=== PATIENT | female | born 1980 | race Caucasian/White ===

== ENCOUNTER 2020-10-14 11:40 | Outpatient (REF) | payer OTHER, SELFPAY | END 2020-10-14 11:41 | disposition home or self-care (01) | LOC: HO.LNP 11:40 | PROVIDERS: Visit Provider Hospitalist | DX: Z20.822 Contact with and (suspected) exposure to COVID-19 (principal); J40 Bronchitis, not specified as acute or chronic | CPT/HCPCS: U0003; U0005 ==

== ENCOUNTER 2024-07-27 13:51 | Outpatient (REF) | payer OTHER, SELFPAY ==
--- NOTE | ~2024-07-27 | MR_ITS ---
EXAMINATION: MR BRAIN WITHOUT CONTRAST CLINICAL INFORMATION: Blurred vision. Frequent urination.Paresthesia, lower extremities. COMPARISON: July 18, 2019. TECHNIQUE: MRI of the brain was obtained using routine sequences without contrast. FINDINGS: Patient's motion artifact. No hyperintense T2 FLAIR signal in the pericallosal interphase. No deep periventricular white matter Carrero fingers pattern No restricted diffusion. No acute intracranial hemorrhage, mass effect, midline shift, hydrocephalus or herniation. Menjivar-white matter differentiation is normal. Posterior cranial fossa contents demonstrated no signal abnormality or gross masses. Flow-void signal within the main cerebral vessels is normal. Sellar/suprasellar region demonstrated no signal abnormality or gross masses. Craniocervical junction demonstrates normal position of the cerebellar tonsils. Midline structures are normal.. MR/MR head/brain wo con IMPRESSION: No acute or structural brain abnormality. No signal abnormality to suggest demyelinating disease. Electronically signed by: Brandon Enriquez MD 07/27/2024 03:51 PM EDT
--- OUTSIDE RECORDS SUMMARY | 2024-07-27 14:01 | XMS_ITS | Clinical Summary ---
Author Organization [facility] [address] [place] [address] [place] [phone] Phone Care Team Providers Care School Program Director Name Role Phone Dawn Suazo MD Primary Care Provider [phone] Allergies Active Allergy Reactions Criticality Noted Date Comments Levonorgestrel-Ethinyl Estrad 2024 Medications albuterol HFA (ProAir HFA) 90 mcg/actuation inhaler INHALE 2 PUFFS BY MOUTH INTO LUNGS EVERY 4 HOURS NEEDED FOR COUGH OR WHEEZING 05/06/2017 Active loratadine (CLARITIN) 10 mg tablet Take 1 tablet (10 mg total) by mouth 1 (one) time each day. 05/17/2015 Active Interferon Beta-1a (REBIF) 22 mcg/0.5 mL injection Inject 0.5 mL (22 mcg total) under the skin 3 (three) times a week. Active zolpidem (AMBIEN) 10 mg tablet Take 1 tablet (10 mg total) by mouth at bedtime as needed. at bedtime Max Daily Amount: 10 mg 06/05/2024 Active Active Problems Problem Noted Date Diagnosed Date Severe obesity (BMI 35.0-39. 9) with comorbidity (CMS/HCC V24, CMS/HCC V28) 06/09/2024 Family history of breast cancer 02/15/2024 Overview (02/15/2024): Pt myRisk negative 07/21/16 Tyrer-Cuzick score - 31.9% = High Risk Juan Downs PA-C Asthma 04/11/2014 Multiple sclerosis ([facility] V24, [facility] V28) Overview (02/15/2024): Dr. Gurrola Rebramin injections 3 times weekly Encounters Date Type Department Care Team Description 06/21/2024 1:39 PM EDT - 06/21/2024 11:59 PM EDT Hospital Encounter Radiology Department - [address] [phone] Buttock pain Discharge Disposition: Home or Self Care 06/09/2024 9:00 AM EDT Office Visit Adult Medicine [address] [phone] Kasey Mcintyre PA Buttock pain (Primary Dx); Severe obesity (BMI 35.0-39.9) with comorbidity ([facility] V24, [facility] V28); Lipid screening; Need for vaccination against Streptococcus pneumoniae; Need for tetanus, diphtheria, and acellular pertussis (Tdap) vaccine; Need for hepatitis C screening test from Last 3 Months Immunizations Name Administration Dates Next Due Influenza Quadrivalent, 0.5m l, preservative free (Fluarix; FluLaval; Fluzone) ages 6mo and older (Afluria) 3yo and older 11/26/2021,01/21/2021,11/24/2017 Influenza Quadrivalent, with preservative (Fluzone; Afluria) 6mo and older 11/23/2018 Influenza trivalent, 0.5mL, preservative free (Fluarix; FluLaval; Fluzone) ages 6mo and older (Afluria) 3 years and older 12/07/2023,11/19/2016,11/20/2015,2014 Influenza trivalent, with preservative (Fluzone; Afluria) 6mo and older 11/20/2015 Influenza, Unspecified 11/24/2017,2016,12/12/2014,2013 Pneumococcal conjugate 13 va lent (Prevnar 13, PCV13) 2mo and older 12/12/2014 Pneumococcal conjugate 20 va lent (Prevnar 20, PCV 20) 2mo and older 06/09/2024 Tdap Tetanus diptheria acell ular pertussis (Boostrix; Adacel) 7yo and older 06/09/2024 Surgical History Surgery Date Site/Laterality Comments SECTION 2013 PROCEDURE: HISTORICAL CARPAL TUNNEL RELEASE Left PROCEDURE: HISTORICAL CARPAL TUNNEL REL BREAST REDUCTION 10/29/2016 PROCEDURE: ND BREAST REDUCTION Medical History Medical History Date Comments Multiple sclerosis (CMS/HCC V24, CMS/HCC V28) DX:Multiple sclerosis (HCC); COMMENT: dr gurrola Family History Medical History Relation Name Comments Breast cancer Aunt 1 maternal aunt Breast cancer Maternal Grandmother deceas ed at young age Breast cancer Mother unilateral Lung cancer Other 1 paternal gr aun t-smoker Relation Name Status Comments Aunt 1 Aunt 2 Maternal Grandmother Mother Other 1 Other 2 Social History Tobacco Use Types Packs/Day Years Used Date Smoking Tobacco: Former Cigarettes Q uit: 05/07/2023 Tobacco Cessation:Counseling Given: Not Answered Alcohol Use Standard Drinks/Week Comments Yes 0 (1 standard drink = 0.6 oz pur e alcohol) Housing Instability Answer Date Recorde d Are you worried that in the next 2 months you may not have stable housing? No 06/09/2024 Food Access & Nutrition Answer Date Rec orded Do you have access to a vari ety of food including fruits and vegetables? Yes 06/09/2024 Access to Healthcare Answer Date Record ed Within the last 3 months, ho w many times did you visit the emergency department for your medical care? 0 06/09/2024 Health Literacy Answer Date Recorded How often do you need to hav e someone help you when you read instructions, pamphlets, or other written material from your doctor or pharmacy? Never 06/09/2024 Caregiver: How often do you need to have someone help you when you read instructions, pamphlets, or other written material from your doctor or pharmacy? Not on file 06/09/2024 Financial Risk Answer Date Recorded How hard is it for you to pa y for the very basics like food, housing, medical care, and air conditioning / heating? Not very hard 06/09/2024 Transportation Answer Date Recorded Has the lack of transportati on kept you from meetings, work, or from getting things needed for daily living? No Has the lack of transportati on kept you from medical appointments or from getting medications? No 06/09/2024 Social Isolation Answer Date Recorded How often do you feel lonely or isolated from th ose around you? Never 06/09/2024 Food Risk Answer Date Recorded Within the past 12 months we worried whether our food would run out before we got money to buy more. Never true 06/09/2024 Within the past 12 months th e food we bought just didn't last and we didn't have money to get more. Never true 06/09/2024 Dependent Care Answer Date Recorded Do you need help finding or paying for care for your loved ones. For example, child care worker or elderly care for an older adult? No 06/09/2024 Education Answer Date Recorded Do you think completing more education or training, like finishing a GED, going to college, or learning a trade, would be helpful for you? No 06/09/2024 Employment and Income Answer Date Recor ded During the last four weeks, have you been actively looking for work? No 06/09/2024 Living Situation Answer Date Recorded What is your living situation? 0 06/09/2024 Comments Unknown Sex and Gender Information Value Date Recorded Sex Assigned at Not on file Legal Sex Female 9:50 PM EST Gender Identity Not on file Sexual Orientation Not on file Obstetrics History Last Filed Vital Signs Vital Sign Reading Time Taken Comments Blood Pressure 110/66 06/09/2024 8:48 AM EDT Pulse 75 06/09/2024 8:48 AM EDT Temperature 36.4 ??C (97.5 ??F) 06/09/2024 8:48 AM ED T Respiratory Rate 14 06/09/2024 8:48 AM EDT Oxygen Saturation 98% 06/09/2024 8:48 AM EDT Inhaled Oxygen Concentration - - Weight 98 kg (216 lb) 06/09/2024 8:48 AM EDT Height 160 cm (5' 3 ) 06/09/2024 8:48 AM EDT Body Mass Index 38.26 06/09/2024 8:48 AM EDT Plan of Treatment Upcoming Encounters Date Type Department Care Team (Late st Contact Info) Description 02/09/2025 9:00 AM EST Office Visit Adult Medicine [address] [place] [phone] Dawn Suazo MD [address] [place] [address] Health Maintenance Due Date Last Done Comments Hepatitis B Vaccines (1 of 3 - 19+ 3-dose series) 2000 Cervical Cancer Screening: Pap Smear 2002 Breast Cancer Screening 08/24/2017 08/24/2016 Cholesterol Screening (Lipid Panel) 02/07/2022 HIV Screening 02/07/2022 Hepatitis C Screening 02/07/2022 COVID-19 Vaccine ( season) 2023 02/07/2021, 07/03/2020, 06/12/2020 Depression Screening 06/08/2025 06/08/2024 Social Influencers of Health Screening 06/09/2025 06/09/2024 DTaP,Tdap,and Td Vaccines (2 - Td or Tdap) 06/09/2034 06/09/2024 Influenza Vaccine Completed 12/07/2023, , 01/21/2021, Additional history exists Pneumococcal Vaccine: Pediatrics (0 to 5 Years) and At-Risk Patients (6 to 64 Years) Completed 06/09/2024, 12/12/2014 HIB Vaccines Aged Out No longer eligi ble based on patient's age to complete this topic HPV Vaccines Aged Out No longer eligi ble based on patient's age to complete this topic Hepatitis A Vaccines Aged Out No long er eligible based on patient's age to complete this topic IPV Vaccines Aged Out No longer eligi ble based on patient's age to complete this topic MMR Vaccines Aged Out No longer eligi ble based on patient's age to complete this topic Meningococcal ACWY Vaccine Aged Out N o longer eligible based on patient's age to complete this topic Meningococcal B Vaccine Aged Out No l onger eligible based on patient's age to complete this topic RSV Immunization Patients Under 20 months Aged Out No longer eligible based on patient's age to complete this topic Varicella Vaccines Aged Out No longer eligible based on patient's age to complete this topic Procedures Procedure Name Priority Date/Time Associated Diagnosis Comments US PELVIS NON OB LIMITED OR FOLLOWUP Routine 06/21/2024 2:02 PM EDT Buttock pain MRI BREAST BILATERAL Routine 08/24/2016 12:46 PM EDT Family history of malignant neoplasm of breast Encounter for procreative genetic counseling Encounter for screening mammogram for malignant neoplasm of breast from Last 3 Months or Most Recently Relevant to Health Maintenance Results * US Pelvis Non OB Limited or Followup (06/21/2024 2:02 PM EDT) Anatomical Region Laterality Modality Body, Pelvis Ultrasound 06/21/2024 5:5 6 PM EDT Impressions 06/23/2024 11:25 AM EDT Bilateral buttock lesions demonstrated in the palpable areas of concern. ??Injection granulomata are possible given clinical history but the lesions are otherwise indeterminate. POS - [id number] -------- FINAL REPORT -------- Dictated By: Lexii Harkins Dictated Date: 06/21/2024 17:56 ET Assigned Physician: Lexii Harkins Reviewed and Electronically Signed By: Lexii Harkins Signed Date: 06/23/2024 11:25 ET Workstation ID: [id number] Transcribed By: Self Edit Transcribed Date: 06/21/2024 18:15 ET Narrative 06/23/2024 11:25 AM EDT EXAM: Ultrasound pelvis nonobstetrical, limited HISTORY: Bilateral palpable buttock lumps in regions of previous medication injections. COMPARISON: None FINDINGS: Patient delineated the palpable lump in the right lateral buttock region. ??Sonography shows a 3.0 x 2.7 x 1.5 cm lobular mildly heterogeneous hypoechoic area in the superficial soft tissues. ??No internal vascularity on color Doppler. ??No cystic areas or definite calcifications. Patient delineated the palpable lump in the left lateral buttock region. ??Sonography shows a 4.8 x 5.6 x 1.6 cm heterogeneous predominantly isoechoic lesion in the superficial soft tissues oriented parallel to the skin surface. ??No internal vascularity on color Doppler. ??No cystic areas or definite calcifications. Procedure Note Lexii Harkins MD - 06/23/2024 EXAM: Ultrasound pelvis nonobstetrical, limited HISTORY: Bilateral palpable buttock lumps in regions of previousmedication injections. COMPARISON: None FINDINGS: Patient delineated the palpable lump in the right lateral buttock region.Sonography shows a 3.0 x 2.7 x 1.5 cm lobular mildly heterogeneoushypoechoic area in the superficial soft tissues. No internal vascularityon color Doppler. No cystic areas or definite calcifications. Patient delineated the palpable lump in the left lateral buttock region.Sonography shows a 4.8 x 5.6 x 1.6 cm heterogeneous predominantlyisoechoic lesion in the superficial soft tissues oriented parallel to theskin surface. No internal vascularity on color Doppler. No cystic areasor definite calcifications. IMPRESSION: Bilateral buttock lesions demonstrated in the palpable areas of concern.Injection granulomata are possible given clinical history but the lesionsare otherwise indeterminate. POS - [id number] -------- FINAL REPORT -------- Dictated By: Lexii Harkins Dictated Date: 06/21/2024 17:56 ET Assigned Physician: Lexii Harkins Reviewed and Electronically Signed By: Lexii Harkins Signed Date: 06/23/2024 11:25 ET Workstation ID: [id number] Transcribed By: Self Edit Transcribed Date: 06/21/2024 18:15 ET us Kasey [facility] IMG US PROCEDURES Final Resul t * MRI BREAST BILATERAL (08/24/2016 12:46 PM EDT) Anatomical Region Laterality Modality Magnetic Resonan ce 07/21/2016 2:07 PM EDT Narrative 08/24/2016 5:16 PM EDT This is a summary report. The complete report is available in the patient's medical record. If you cannot access the medical record, please contact the sending organization for a detailed fax or copy. MRI BREAST BILATERAL BILATERAL BREAST MRI WITHOUT AND WITH IV CONTRAST HISTORY: ??Tyrer-Lowell score equals 31.9% equal high risk. TECHNIQUE: ? The patient received 10] ??cc IV Magnevist. CAD (DynaCAD) was utilized during interpretation. FINDINGS: The breasts are heterogeneously dense. There is moderate background parenchymal enhancement. RIGHT BREAST: ? There is no suspicious mass lesion, abnormal threshold enhancement, suspicious washout contrast kinetics, architectural distortion, or skin thickening in the right breast. No lymphadenopathy is seen. LEFT BREAST: ? There is no suspicious mass lesion, abnormal threshold enhancement, suspicious washout contrast kinetics, architectural distortion, or skin thickening in the left breast. No lymphadenopathy is seen. IMPRESSION: IMPRESSION: ??No MR evidence of malignancy. Yearly screening breast MRI and yearly screening mammogram suggested. BI-RADS 1-negative Procedure Note Alia Weinstein MD - 04/09/2023 This is a summary report. The complete report is available in thepatient's medical record. If you cannot access the medical record, pleasecontact the sending organization for a detailed fax or copy. MRI BREAST BILATERAL BILATERAL BREAST MRI WITHOUT AND WITH IV CONTRAST HISTORY: Tyrer-Lowell score equals 31.9% equal high risk. TECHNIQUE: The patient received 10] cc IV Magnevist. CAD (Muecs)was utilized during interpretation. FINDINGS: The breasts are heterogeneously dense. There is moderatebackground parenchymal enhancement. RIGHT BREAST: There is no suspicious mass lesion, abnormal threshold enhancement,suspicious washout contrast kinetics, architectural distortion, or skin thickening in the rightbreast. No lymphadenopathy is seen. LEFT BREAST: There is no suspicious mass lesion, abnormal threshold enhancement,suspicious washout contrast kinetics, architectural distortion, or skin thickening in the leftbreast. No lymphadenopathy is seen. IMPRESSION: IMPRESSION: No MR evidence of malignancy. Yearly screening breast MRI andyearly screening mammogram suggested. BI-RADS 1-negative Chasity [facility] [place] MRI PROCEDURES Final Resu lt from Last 3 Months or Most Recently Relevant to Health Maintenance Insurance 1/2 [place] [id number] [facility] [address] [place] [address] Care Teams School Program Director Relationship Specialty Start Date End Date Dawn Suazo MD [address] [place] [address] PCP - General Internal Medicine 10/13/11
== END 2024-07-27 13:52 | disposition home or self-care (01) ==
LOC: HO.MRI 13:51
PROVIDERS: PCP Internal Medicine; Visit Provider Psychiatry & Neurology Neurology
DX: G35 Multiple sclerosis (principal)
CPT/HCPCS: 70551

== ENCOUNTER → 2024-07-27 14:00 | Outpatient (BNV) | payer OTHER, SELFPAY | PROVIDERS: PCP Internal Medicine; Visit Provider Radiology Diagnostic Radiology | DX: H53.8 Other visual disturbances (principal); R35.0 Frequency of micturition; R20.2 Paresthesia of skin | CPT/HCPCS: 70551 ==

== ENCOUNTER 2024-11-22 15:29 | Outpatient (AMB) | payer OTHER, SELFPAY ==
--- NOTE | 2024-11-22 15:50 | MHC.OFFVIS ---
Intake Visit Reasons: after MRI Allergies No Known Allergies (NKA) Allergy (Mild, Unverified 11/23/19 17:31) NOT APPLICABLE HPI Comments Details: 44 years old woman with stable MS, migraine, insomnia, and spastic bladder. She was seen first in May of 2007 in ER at [facility] with right optic neuritis and abnormal brain MRI suggestive of demylinating disease. She was initially treated with Betaseron that was stopped after around 2012 when she became . After in 2013 it was changed to Rebif. Rebif was staopped due to no symptoms suggestive of MS, MRI findings, and stablity of the disease in July of 2018. She is presenting with a follow-up for Multiple Sclerosis and management of insomnia and anxiety. Diagnosed with Multiple Sclerosis in 2007, she reports previous blindness in the left eye due to lesions noted on the MRI in the right hemisphere. Recent MRIs show no significant new lesions, providing some reassurance concerning disease progression. Despite the chronic nature of MS, her symptoms appear stable compared to past imaging and reports. Separately, she is experiencing ongoing insomnia, managed through Ambien; however, she continues to have difficulty quieting her mind for sleep. The interplay between her insomnia and anxiety has been discussed, as heightened anxiety levels seem to contribute to her sleep issues. She remains physically active, but her persistent worry complicates her sleep quality. Notably, previous treatments for anxiety may have aided smoking cessation. Review of Systems Const Details: - Neurological: Reports blindness in the left eye; denies new neurologic deficits. - Psychiatric: Reports insomnia and anxiety; denies hallucinations or delusions. - Social: Reports cessation of smoking; denies nicotine use. Physical Exam Neuro Other: Mental Status: Alert and oriented to person, place, and time. Normal attention. Normal spontaneous speech, fluency, and comprehension. No obvious issues with mood and memory. Affect is appropriate. Cranial Nerves: CN II: Visual zepeda full to confrontation, visual acuity intact. CN III, IV, : Pupils equal, round, reactive to light and accommodation. Extraocular movements are normal. CN V: Facial sensation is normal. CN VII: Facial movements symmetrical. CN VIII: Hearing intact to bedside conversation is normal. CN IX, X: Palate elevates symmetrically. CN XI: Shoulder shrug and head turn symmetrical. CN XII: Tongue midline without atrophy or fasciculations. Motor: Bulk and tone normal in all extremities. No significant muscle weakness in arms and legs. No drift. Extrapyramidal: Full facial expressions and blinking. No rigidity. Movements are appropriate with no tremor or abnormality. Speech: Normal; no dysarthria or tremor. Assessment & Plan Assessment & Plan (1) Multiple sclerosis: Comment: MRI brain WO at [facility] in July 2024: No sig lesions noted MRI brain WO at [facility] in July 2019: No sig abnormality MRI brain at [facility] WO in 2019: probably just one lesion or two, but compared to MRI in 2010, it was better MRI brain at [facility] WWO in 2007: many lesions suggestive of MS, a few in left hemisphere and one larger in right cerebellar ped MRI brain at [facility] in 2010 WWO: few fading lesions. NCV/EMG 03/24/2012 MILD TO MODERATE BILATERAL MEDIAN NEUROPATHY ACROSS THE CARPAL TUNNEL. Code(s): G35 - Multiple sclerosis Category: Medical (2) Insomnia: Code(s): G47.00 - Insomnia, unspecified Category: Medical Qualifiers: Insomnia type: psychophysiologic Qualified Code(s): F51.04 - Psychophysiologic insomnia (3) Migraine: Code(s): G43.909 - Migraine, unspecified, not intractable, without status migrainosus Category: Medical Qualifiers: Migraine type: migraine (< 15 days per month) without aura Status migrainosus presence: without status migrainosus Intractability: not intractable Qualified Code(s): G43.009 - Migraine without aura, not intractable, without status migrainosus Plan Impression: a: Multiple sclerosis in remission with no active or chronic lesions noted for a few years. b: Insomnia, psychophysiological c: Anxiety d: Migraine Medications: Changed From zolpidem 10 mg PO BEDTIME 90 days PRN 90 tabs 0RF sleep To zolpidem 10 mg PO BEDTIME PRN 20 tabs 2RF sleep 30 days Coding Level of Care Code Est Pt Level 5 (77001) Diagnoses Multiple sclerosis G35 Psychophysiological insomnia F51.04 Insomnia type: psychophysiologic Migraine without aura and without status migrainosus, not intractable G43.009 Migraine type: migraine (< 15 days per month) without aura Status migrainosus presence: without status migrainosus Intractability: not intractable
--- OUTSIDE RECORDS SUMMARY | 2024-11-22 18:55 | XMS_ITS | Clinical Summary ---
Author Organization [facility] [address] [place] [address] [place] [phone] Phone Care Team Providers Care Tax Analyst Name Role Phone Dawn Suazo MD Primary Care Provider [phone] Allergies Active Allergy Reactions Criticality Noted Date [...] Juan Downs PA-C Asthma 04/11/2014 Multiple sclerosis ([facility] V24, [facility] V28) Overview (02/15/2024): Dr. Gurrola, [place]iss[place] injections 3 times weekly Immunizations Name Administration Dates Next Due Influenza [...] CARPAL TUNNEL REL BREAST REDUCTION 10/29/2016 PROCEDURE: [place] BREAST REDUCTION Medical History Medical History Date Comments Multiple sclerosis ([facility] V24, [facility] V28) DX:Multiple sclerosis ([facility]); COMMENT: dr gurrola Family History Medical History [...] your loved ones. For example, child care associate teacher or elderly care for an older adult? [...] 76 06/09/2024 8:48 AM EDT Temperature 36.4 C (97.5 F) 06/09/2024 8:48 AM EDT Respiratory Rate 14 06/09/2024 8:48 AM EDT Oxygen Saturation 98% 06/09/2024 8:48 AM EDT Inhaled Oxygen Concentration - - Weight 98 kg (216 lb) 06/09/2024 8:48 AM EDT Height 160 cm (5' 3 ) 06/09/2024 8:48 AM EDT Body Mass Index 38.26 06/09/2024 8:48 AM EDT Plan of Treatment Health Maintenance Due Date Last Done Comments Hepatitis B Vaccines (1 of 3 - 19+ 3-dose series) 2000 Cervical Cancer Screening: Pap Smear 2002 Breast Cancer Screening 08/24/2017 08/24/2016 Cholesterol Screening (Lipid Panel) 02/07/2022 HIV Screening 02/07/2022 Hepatitis C Screening 02/07/2022 COVID-19 Vaccine ( season) 2024 02/07/2021, 07/03/2020, 06/12/2020 Influenza Vaccine (#1) 2024 , 11/26/2021, 01/21/2021, Additional history exists Social Influencers of Health Screening 06/09/2025 06/09/2024 DTaP,Tdap,and Td Vaccines (2 - Td or Tdap) 06/09/2034 06/09/2024 Depression Screening Completed 06/08/2024 Pneumococcal Vaccine: Pediatrics (0 to 5 Years) and At-Risk Patients (6 to 49 Years) Completed 06/09/2024, 12/12/2014 HIB Vaccines Aged [...] Procedure Name Priority Date/Time Associated Diagnosis Comments MRI BREAST BILATERAL Routine 08/24/2016 12:46 PM EDT Family history of malignant neoplasm of breast Encounter for procreative genetic counseling Encounter for screening mammogram for malignant neoplasm of breast from Last 3 Months or Most Recently Relevant to Health Maintenance Results * MRI BREAST BILATERAL (08/24/2016 12:46 PM [...] MRI WITHOUT AND WITH IV CONTRAST HISTORY: Tyrer-Joan score equals 31.9% equal high risk. TECHNIQUE: The patient received 10] cc IV Magnevist. CAD (StretchraCAD) was utilized during interpretation. FINDINGS: The breasts are heterogeneously dense. There is moderate background parenchymal enhancement. RIGHT BREAST: There is no suspicious mass lesion, abnormal threshold enhancement, suspicious washout contrast kinetics, architectural distortion, or skin thickening in the right breast. No lymphadenopathy is seen. LEFT BREAST: There is no suspicious mass lesion, abnormal threshold enhancement, suspicious washout contrast kinetics, architectural distortion, or skin thickening in the left breast. No lymphadenopathy is seen. IMPRESSION: IMPRESSION: No [...] MRI WITHOUT AND WITH IV CONTRAST HISTORY: Tyrer-Whitfield score equals 31.9% equal high risk. TECHNIQUE: The patient received 10] cc IV Magnevist. CAD (DynaCAD)was utilized during interpretation. FINDINGS: The breasts are [...] screening mammogram suggested. BI-RADS 1-negative Chasity ALAMO IM MRI PROCEDURES Final Resu lt from Last 3 Months or Most Recently Relevant to Health Maintenance Insurance / [place] [id number] [facility] Care Teams Tax Analyst Relationship Specialty Start Date End Date Dawn Suazo MD [address] [place], [place] PCP - General Internal Medicine 10/13/11
== END 2024-11-22 16:27 | disposition home or self-care (01) ==
LOC: HO.HSM 15:30
PROVIDERS: PCP Internal Medicine; Visit Provider Psychiatry & Neurology Neurology
DX: G35 Multiple sclerosis (principal); F51.04 Psychophysiologic insomnia; G43.009 Migraine without aura, not intractable, without status migrainosus
CPT/HCPCS: 99214

== ENCOUNTER 2025-02-19 15:58 | Outpatient (AMB) | payer OTHER, SELFPAY ==
--- NOTE | 2025-02-19 16:14 | MHC.OFFVIS ---
Intake Visit Reasons: 3 month F/U Allergies No Known Allergies (NKA) Allergy (Mild, Unverified 11/23/19 17:31) NOT APPLICABLE HPI Comments Details: 44 years old woman with stable MS, migraine, insomnia, and spastic bladder. She was seen first in May of 2007 in ER at [facility] with right optic neuritis and abnormal brain MRI suggestive of demylinating disease. She was initially treated with Betaseron that was stopped after around 2012 when she became . After in 2013 it was changed to Rebif. Rebif was staopped due to no symptoms suggestive of MS, MRI findings, and stablity of the disease in July of 2018. She is presenting for a final follow-up visit after 23 years of care. Her headaches have been well-controlled. She reports her eye is still a little blurry sometimes, which is an improvement from a prior episode of complete blindness. Her last MRI was normal. For sleep, she has been taking zolpidem, which was previously cut in half, and she is now taking it on an as-needed basis with the goal of eventual discontinuation. Review of Systems Narrative - Neurological: Reports headaches have been good. - Eyes: Reports intermittent blurry vision. Physical Exam Neuro Other: Mental Status: Alert and oriented to person, place, and time. Normal attention. Normal spontaneous speech, fluency, and comprehension. Cranial Nerves: CN II: Visual zepeda full to confrontation, visual acuity intact. CN III, IV, : Pupils equal, round, reactive to light and accommodation. Extraocular movements are normal. CN V: Facial sensation is normal. CN VII: Facial movements symmetrical. CN VIII: Hearing intact to bedside conversation is normal. CN IX, X: Palate elevates symmetrically. CN XI: Shoulder shrug and head turn symmetrical. CN XII: Tongue midline without atrophy or fasciculations. Extrapyramidal: Full facial expressions and blinking. No rigidity. Movements are appropriate with no tremor or abnormality. Speech: Normal; no dysarthria or tremor. Assessment & Plan Assessment & Plan (1) Multiple sclerosis: Comment: MRI brain WO at [facility] in July 2024: No sig lesions noted MRI brain WO at [facility] in July 2019: No sig abnormality MRI brain at [facility] WO in 2019: probably just one lesion or two, but compared to MRI in 2011, it was better MRI brain at [facility] WWO in 2008: many lesions suggestive of MS, a few in left hemisphere and one larger in right cerebellar ped MRI brain at [facility] in 2010 WWO: few fading lesions. NCV/EMG 03/24/2012 MILD TO MODERATE BILATERAL MEDIAN NEUROPATHY ACROSS THE CARPAL TUNNEL. Code(s): G35 - Multiple sclerosis Category: Medical (2) Insomnia: Code(s): G47.00 - Insomnia, unspecified Category: Medical Qualifiers: Insomnia type: psychophysiologic Qualified Code(s): F51.04 - Psychophysiologic insomnia Plan Impression: 44 years old woman who was diagnosed with multiple sclerosis years ago but has been stable for many years. Last MRI in July of 2024 did not reveal any significant lesion. She also suffered from anxiety and insomnia and had been taking zolpidem. Slowly and gradually I have asked her to taper off this medicine and she has been working on that. She was not having any new symptoms and for now she was discharged from this office with an understanding that she could make an appointment if any new symptom would appear. Coding Level of Care Code Est Pt Level 3 (33782) Diagnoses Multiple sclerosis G35 Psychophysiological insomnia F51.04 Insomnia type: psychophysiologic
--- OUTSIDE RECORDS SUMMARY | 2025-02-19 22:20 | XMS_ITS | Clinical Summary ---
Author Organization [facility] [address] [place] [address] [place] [phone] Phone Care Team Providers Care Tire Tester Name Role Phone Dawn Suazo MD Primary Care Provider [phone] Allergies Active Allergy Reactions Criticality Noted Date [...] Noted Date Diagnosed Date Severe obesity (BMI 35.0-39.9) with comorbidity 06/09/2024 Family history of breast cancer 02/15/2024 Overview (02/15/2024): Pt myRisk negative 07/21/16 Tyrer-Cuzick score - 31.9% = High Risk Juan Downs PA-C Asthma 04/11/2014 Multiple sclerosis 04/11/2014 Overview (02/15/2024): Lisstet Sterling injections 3 times weekly Immunizations Immunization Administration Dates Next Due Influenza Quadrivalent, 0.5m [...] CARPAL TUNNEL REL BREAST REDUCTION 10/29/2016 PROCEDURE: [place] BREAST REDUCTION Medical History Medical History Date Comments Multiple sclerosis DX:Multiple s clerosis (HCC); COMMENT: dr serrano Family History Medical History Relation Name Comments Breast cancer Aunt 1 maternal aunt Breast cancer Maternal Grandmother deceas ed at young age Breast cancer Mother unilateral Lung cancer Other 1 paternal gr aun t-smoker Relation Name Status Comments Aunt 1 Aunt 2 Maternal Grandmother Mother Other 1 Other 2 Social History Tobacco Use Types Packs/Day Years Used Date Smoking Tobacco: Former Cigarettes 0 Q uit: 05/07/2023 Tobacco Cessation:Counseling Given: Not [...] care for your loved ones. For example, early childhood education specialist or elderly care for an older adult? [...] Date Recorded What is your living situation? Unrecognized valu e 06/09/2024 Comments Unknown Sex and Gender Information Value Date Recorded Sex Assigned at Not on file Legal Sex Female 9:50 PM EST Gender Identity Not on file Sexual Orientation Not on file Last Filed Vital Signs Vital Sign Reading [...] Care Team (Late st Contact Info) Description 03/29/2025 3:00 PM EST Office Visit Adult Medicine [facility] [address] [place] [phone] Kasey Mcintyre PA [address] [place], [place] Health Maintenance Due Date Last Done Comments Hepatitis B Vaccines (1 of 3 - 19+ 3-dose series) 2000 Cervical Cancer Screening: Pap Smear 2002 HPV Vaccines (1 - 3-dose SCDM series) 2008 Breast Cancer Screening 08/24/2017 08/24/2016 Cholesterol Screening (Lipid Panel) 02/07/2022 HIV Screening 02/07/2022 Hepatitis C Screening 02/07/2022 COVID-19 Vaccine ( season) 2024 02/07/2021, 07/03/2020, 06/12/2020 Influenza Vaccine (#1) 2024 , 11/26/2021, 01/21/2021, Additional history exists Social Influencers of Health Screening 06/09/2025 06/09/2024 DTaP,Tdap,and Td Vaccines (2 - Td or Tdap) 06/09/2034 06/09/2024 RSV Immunization Adult Patients (1 - 1-dose 75+ series) 2056 Depression Screening Completed 06/08/2024 Pneumococcal Vaccine: Pediatrics [...] MRI WITHOUT AND WITH IV CONTRAST HISTORY: Tyrer-Rollins score equals 31.9% equal high risk. TECHNIQUE: The patient received 10] cc IV Magnevist. CAD (DynaCAD) was utilized during [...] MRI WITHOUT AND WITH IV CONTRAST HISTORY: Tyrer-Rollins score equals 31.9% equal high risk. TECHNIQUE: The patient received 10] cc IV Magnevist. CAD (NephroGenexaCAVendobots)was utilized during interpretation. FINDINGS: The breasts are [...] Most Recently Relevant to Health Maintenance Insurance * Guarantor: Rima Guan Account Type Relation to Patient Date of Phone Billing Address Personal/Family Self 1980 [address] [place] [address] [facility] Care Teams Tire Tester Relationship Specialty Start Date End Date Dawn Suazo MD [address] [place] [phone] PCP - General Internal Medicine 10/13/11
== END 2025-02-19 16:18 | disposition home or self-care (01) ==
LOC: HO.HSM 15:58
PROVIDERS: PCP Internal Medicine; Visit Provider Psychiatry & Neurology Neurology
DX: G35.D Multiple sclerosis, unspecified (principal); F51.04 Psychophysiologic insomnia
CPT/HCPCS: 99213